=== PATIENT | male | born 1975 | race African-American/Black ===

== ENCOUNTER 2016-11-26 18:52 | Emergency (ER) | payer SELFPAY ==
[2016-11-26 19:05] VITALS: BP 142/90
--- NOTE | 2016-11-26 19:11 | ER Document Report ---
ED General - General Chief Complaint: Toothache Stated Complaint: TOOTH PAIN Time Seen by Provider: 11/26/16 19:10 Mode of Arrival: Ambulatory Information source: Patient Notes: patient is a 41 year old male who presents with toothache to top left tooth that has been present over the past year but worsened over the past 2 years. His gave him 2 doses of leftover antibiotic she had previously and he has tried oragel for pain without relief. He denies any fever, chills, facial swelling, gum swelling, drainage or bleeding. He does not have a dentist. Past Medical History - General Information source: Patient - Social History Smoking Status: Current Every Day Smoker Family History: Reviewed & Not Pertinent Review of Systems - Review of Systems Constitutional: See HPI EENT: See HPI Cardiovascular: No symptoms reported Respiratory: No symptoms reported Gastrointestinal: No symptoms reported Genitourinary: No symptoms reported Male Genitourinary: No symptoms reported Musculoskeletal: No symptoms reported Skin: No symptoms reported Hematologic/Lymphatic: No symptoms reported Neurological/Psychological: No symptoms reported Physical Exam - Vital signs Vitals: Temp Pulse Resp BP Pulse Ox 98.3 F 70 16 142/90 H 97 11/26/16 19:02 11/26/16 19:02 11/26/16 19:02 11/26/16 19:02 11/26/16 19:02 - Notes Notes: PHYSICAL EXAM: CONSTITUTIONAL: Alert and oriented, well-appearing and in no acute distress. HENT: Normocephalic, atraumatic. Oropharynx clear without erythema, tonsilar exudate or malocclusion. Trachea midline. Uvula midline. Moist mucous membranes. Dental decay to tooth #17, no gingival swelling or buccosal swelling. No evidence of dental abscess. EYES: Pupils equal round and reactive to light, EOM intact. Sclera anicteric, conjunctiva are normal. No entrapment. NECK: supple without lymphadenopathy. No midline tenderness or paraspinous muscle spasms. No step-offs or deformities. ROM intact. HEART: Regular rate and rhythm without murmurs. LUNGS: CTAB and equal. No wheezes, rales or rhonchi. EXTREMITIES: Normal range of motion, no pitting edema. No cyanosis. Cap Refill < 3 seconds. SKIN: Warm and dry. Normal turgor. No rashes or lesions noted. Course - Re-evaluation Re-evalutation: 11/26/16 19:23 Patient seen and examined. Decay to tooth #17, no evidence for abscess. Will treat with empiric abx and pain medications. Discussed needing to follow-up with dentist. At this time, will discharge with return precautions and follow-up recommendations. Verbal discharge instructions given at the bedside and opportunity for questions given. Medication warnings reviewed. Patient is in agreement with this plan and has verbalized understanding of return precautions and the need for primary care follow-up in the next 24-72 hours. - Vital Signs Vital signs: Temp Pulse Resp BP Pulse Ox 98.3 F 70 16 142/90 H 97 11/26/16 19:02 11/26/16 19:02 11/26/16 19:02 11/26/16 19:02 11/26/16 19:02 Discharge - Discharge Clinical Impression: Toothache Condition: Stable Disposition: HOME, SELF-CARE Additional Instructions: TOOTHACHE: Your pain is due to dental decay. The tooth must be repaired in order for you to feel better. You will, therefore, be referred to a dentist. We do not have dentists on the staff at [facility]. Severe swelling or drainage around a tooth usually means a dental abscess. This also requires evaluation and treatment by the dentist, but antibiotics may be prescribed while awaiting dental treatment. You should be rechecked immediately if you develop major swelling of the face, increasing pain, a lump in the jaw or gums, headache, difficulty swallowing, or fever. Take ibuprofen 800 mg every 8 hours for pain. You can take 500 mg of tylenol every 8 hours for pain and alternate between the two every 4 hours. PENICILLIN V K: You have been given a prescription for Penicillin VK. Your physician has determined that this is the best antibiotic for your condition. Pen VK can be taken with meals, however more of the antibiotic gets into the bloodstream if it's taken on an empty stomach. Penicillin usually has no side effects. However, allergy to penicillins is common. If you have had an allergic reaction to any drug of the penicillin family, you should never take any other penicillin. Notify your doctor at once if you develop hives, itching, swelling, faintness, or shortness of breath. FOLLOW-UP CARE: You have been referred for follow-up care to the dentists listed below. Call the dentists office for an appointment as you were instructed or within the next two days. If you experience worsening or a significant change in your symptoms, notify the physician immediately or return to the Emergency Department at any time for re-evaluation. [facility] [address] [place], [place] mornings, by appointment [facility] [address] [place] [address] [facility] [address] [facility] [address] [facility] [address] [facility] [address] [email or web address] [address] [place] [address] [phone] Saturday- 8:00am to 5:00 pm Will see patients from other [facility]. Charges based on income and family size and accepts Medicare, Medicaid, and Insurances Will pull molars [facility] [id number] Hours of Operation 8:00 am - 4:30 pm weekdays The following dental offices accept Medicaid: [facility] Dr. Gillespie Dr. Bah Dr. Burrell Dr. Mello Adalberto Larios Lutsavage, and [place] [facility] Dr. Duckworth ([place]) Dr. Solano ([place]) [facility] Drs. Zaragoza and Pablo ([place]) Dr. Fox ([place]) [facility] Dr. Hancock ([place]) Drs. [place] and ([place]) Medicaid Care Line Prescriptions: Penicillin V Potassium [Penicillin Vk 250 mg Tablet] 250 mg PO Q6 #40 tablet
[2016-11-26] MEDS ORDERED: HYDROCODONE/ACETAMINOPHEN 5-325 MG 6 TAB/DSPK PO PRN (19:24)
== END 2016-11-26 19:37 | disposition home or self-care (01) ==
LOC: ER 18:52
DX: K08.89 Other specified disorders of teeth and supporting structures (principal); F17.200 Nicotine dependence, unspecified, uncomplicated
CPT/HCPCS: 99282